=== PATIENT | female | born 1980 | race Caucasian/White ===

== ENCOUNTER 2024-10-24 11:51 | Emergency (ER) | payer OTHER ==
[2024-10-24 12:53] LABS: BASOPHILS ABSOLUTE AUTO 0.07 K/uL (0.02-0.10); BASOPHILS PERCENT AUTO 1.2 % (0.0-0.5); EOSINOPHILS ABSOLUTE AUTO 0.23 K/uL (0.04-0.40); EOSINOPHILS PERCENT AUTO 3.9 % (1.0-5.0); LYMPHOCYTES ABSOLUTE AUTO 1.68 K/uL (1.50-4.00); LYMPHOCYTES PERCENT AUTO 28.1 % (20.0-40.0); MEAN PLATELET VOLUME 10.8 fL (6.0-10.0); MONOCYTES ABSOLUTE AUTO 0.58 K/uL (0.20-0.80); MONOCYTES PERCENT AUTO 9.7 % (3.0-10.0); NEUTROPHILS ABSOLUTE AUTO 3.41 K/uL (2.00-7.50); NEUTROPHILS PERCENT AUTO 57.1 % (45.0-70.0); PLATELET COUNT,PLT 251 K/uL (150-500); RED BLOOD CELL COUNT 4.76 M/uL (3.80-5.80); RED CELL DISTRIBUTION WIDTH 12.7 % (11.0-16.0); WHITE BLOOD CELL COUNT,WBC 6.0 K/uL (4.0-11.0)
[2024-10-24 13:04] LABS: APPEARANCE,URINE CLEAR (CLEAR); GLUCOSE,URINE NEGATIVE (NEGATIVE); OCCULT BLOOD,URINE NEGATIVE (NEGATIVE)
[2024-10-24 13:12] LABS: A/G RATIO 1.2 (0.8-2.0); ALANINE AMINOTRANSFERASE,ALT 17.0 U/L (12-78); ASPARTATE AMNIOTRANSFERASE,AST 14.0 U/L (15-37); BILIRUBIN TOTAL 0.8 mg/dL (0.0-1.0); BLOOD UREA NITROGEN,BUN 9.0 mg/dL (8-26); CARBON DIOXIDE,CO2 30.0 mmol/L (21.0-32.0); CHLORIDE,CL 105.0 mmol/L (98-107); CREATININE 0.77 mg/dL (0.55-1.02); EST CRCL DRUG DOSING (CG) 80.51 mL/min; ESTIMATED GFR 97.0 mL/min (>60); GLUCOSE RANDOM 84.0 mg/dL (74-100); POTASSIUM,K 3.8 mmol/L (3.5-5.1); PROTEIN TOTAL,TP 7.1 g/dL (6.4-8.2); SODIUM,NA 141.0 mmol/L (136-145)
[2024-10-24] MEDS ORDERED: Sodium Chloride 0.9% 10 ML Syringe FLUSH PRN (13:15)
[2024-10-24] MEDS: Ondansetron 4 MG/2 ML SDV IVPUSH ONE (13:21)
[2024-10-24] MEDS: fentaNYL 100 MCG/2 ML SDV IVPUSH ONE (13:23)
== END 2024-10-24 14:50 | disposition home or self-care (01) ==
LOC: LB.ED 11:51
DX: R10.84 Generalized abdominal pain (principal); Z88.6 Allergy status to analgesic agent; Z88.8 Allergy status to other drugs, medicaments and biological substances; Z79.899 Other long term (current) drug therapy; Z86.16 Personal history of COVID-19
CPT/HCPCS: 36415; 74176; 80053; 81003; 83605; 83690; 84145; 85025; 86140; 96361; 96374; 96375; 99284; J2405; J3010; J7030